=== PATIENT | male | born 1945 | race Caucasian/White ===

== ENCOUNTER 2017-10-10 06:09 | Emergency (ER) | payer OTHER ==
[2017-10-10 06:14] VITALS: BP 195/115
== END 2017-10-10 06:21 | disposition left against medical advice (07) ==
LOC: EDBD 06:09 → ED 06:15
DX: R11.0 Nausea (principal); R52 Pain, unspecified; Z53.21 Procedure and treatment not carried out due to patient leaving prior to being seen by health care provider